=== PATIENT | male | born 1990 | race American Indian/Alaskan Native ===

== ENCOUNTER 2018-09-01 19:24 | Emergency (ER) | payer SELFPAY ==
--- NOTE | 2018-09-01 19:40 | ED PDOC ---
Arrival/HPI - General Historian: Patient - History of Present Illness Narrative History of Present Illness (Text): 09/01/18 20:05 Patient is a 28 year old male with past medical history of asthma presenting with chief complaint of abdominal pain, headache, and nausea which began when he woke up this morning. Pain is sharp and stabbing and located in upper abdominal area. He denies taking any medications. Denies any ingestion of atypical foods. Denies fevers, chills, chest pain, shortness of breath, vomiting, diarrhea, constipation, dysuria. Time/Duration: 24 hours Symptom Onset: Sudden Quality: Stabbing Severity Level: Moderate <Sonja Smith - Last Filed: 09/01/18 22:45> Past Medical History - Provider Review Nursing Documentation Reviewed: Yes <Sonja Smith - Last Filed: 09/01/18 22:45> Family/Social History - Physician Review Nursing Documentation Reviewed: Yes Family/Social History: No Known Family HX Smoking Status: Never Smoked Hx Alcohol Use: Yes Frequency of alcohol use: Socially Hx Substance Use: Yes (marijuana) <Sonja Smith - Last Filed: 09/01/18 22:45> Allergies/Home Meds <JeremyFred Hans - Last Filed: 09/01/18 20:52> <Sonja Smith - Last Filed: 09/01/18 22:45> Allergies/Adverse Reactions: Allergies rubbing alcohol Adverse Reaction (Uncoded 09/01/18 19:41) RASH Home Medications: Home Meds Medication Instructions Recorded Confirmed No Known Home Med 09/01/18 09/01/18 Review of Systems - Physician Review All systems were reviewed & negative as marked: Yes - Review of Systems Respiratory: Normal Cardiovascular: Normal Gastrointestinal: Abdominal Pain, Nausea. absent: Constipation, Diarrhea, Vomiting Genitourinary Male: Normal <Sonja Smith - Last Filed: 09/01/18 22:45> Physical Exam Vital Signs Reviewed: Yes Temperature: Afebrile Blood Pressure: Normal Pulse: Regular Respiratory Rate: Normal Appearance: Positive for: Non-Toxic Pain Distress: Mild Mental Status: Positive for: Alert and Oriented X 3 - Systems Exam Head: Present: Atraumatic, Normocephalic Pupils: Present: PERRL Extroacular Muscles: Present: EOMI Conjunctiva: Present: Normal Mouth: Present: Moist Mucous Membranes Respiratory/Chest: Present: Clear to Auscultation, Good Air Exchange. No: Respiratory Distress, Accessory Muscle Use Cardiovascular: Present: Regular Rate and Rhythm, Normal S1, S2. No: Murmurs Abdomen: Present: Tenderness (mild, epigastric), Normal Bowel Sounds. No: Distention, Rebound, Guarding Lower Extremity: Present: Normal Inspection. No: Edema Neurological: Present: GCS=15, CN II-XII Intact, Speech Normal Skin: Present: Warm, Dry, Normal Color Psychiatric: Present: Alert, Oriented x 3 <Sonja Smith L - Last Filed: 09/01/18 22:45> Medical Decision Making - Lab Interpretations Lab Results: Total Bilirubin 1.3 mg/dL (0.2-1.3) 09/01/18 20:35 AST 28 U/L (17-59) 09/01/18 20:35 ALT 9 U/L (7-56) 09/01/18 20:35 Alkaline Phosphatase 55 U/L (38-126) 09/01/18 20:35 Total Protein 8.3 g/dL (5.8-8.3) 09/01/18 20:35 Albumin 4.7 g/dL (3.0-4.8) 09/01/18 20:35 Globulin 3.7 gm/dL 09/01/18 20:35 Albumin/Globulin Ratio 1.3 (1.1-1.8) 09/01/18 20:35 Lipase 19 U/L (23-300) L 09/01/18 20:35 - RAD Interpretation Radiology Orders: 09/01/18 20:02 ABDOMEN COMPLETE [US] Stat - Medication Orders Current Medication Orders: Sodium Chloride (Sodium Chloride 0.9%) 1,000 mls @ 999 mls/hr IV .Q1H1M STA Stop: 09/01/18 21:03 Last Admin: 09/01/18 20:11 Dose: 999 mls/hr eMAR Start Stop Document 09/01/18 20:11 EQ (Rec: 09/01/18 20:12 EQ [id number]) Intravenous Solution Start Date 09/01/18 Start Time 20:12 Discontinued Medications Acetaminophen (Tylenol 325mg Tab) 975 mg PO STAT STA Stop: 09/01/18 20:03 Last Admin: 09/01/18 20:12 Dose: 975 mg Al Hydrox/Mg Hydrox/Simethicone (Maalox Plus 30 Ml) 30 ml PO STAT STA Stop: 09/01/18 20:05 Last Admin: 09/01/18 20:12 Dose: 30 ml Diphenhydramine HCl (Benadryl) 50 mg IVP STAT STA Stop: 09/01/18 20:16 Famotidine (Pepcid) 20 mg IVP STAT STA Stop: 09/01/18 20:04 Last Admin: 09/01/18 20:12 Dose: 20 mg IVP Administration Document 09/01/18 20:12 EQ (Rec: 09/01/18 20:12 EQ [id number]) Charges for Administration # of IVP Administrations 1 Metoclopramide HCl (Reglan) 10 mg IVP STAT STA Stop: 09/01/18 20:03 Last Admin: 09/01/18 20:12 Dose: 10 mg IVP Administration Document 09/01/18 20:12 EQ (Rec: 09/01/18 20:12 EQ [id number]) Charges for Administration # of IVP Administrations 1 <Fred Luna - Last Filed: 09/01/18 20:52> ED Course and Treatment: 09/01/18 19:45 Impression: 28 year old male with abdominal pain Plan: - CBC, CMP - Urinalysis - Abdomen ultrasound - IVF - Reglan - Pepcid - Maalox - Reassess and disposition Prior Visits: Notes and results from previous visits were reviewed. Progress Notes: 09/01/18 20:11 - RAD Interpretation Narrative RAD Interpretations (Text): 09/01/18 22:44 US: fatty liver, mild intrahepatic biliary ductal dilatation <Sonja Smith L - Last Filed: 09/01/18 22:45> - Scribe Statement The provider has reviewed the documentation as recorded by the Scribe Patient Seen with Provider In agreement with resident note which contains more details about the patient. Patient seen and evaluated with resident. Came up with plan and treatment together. <Fred Luna - Last Filed: 09/01/18 20:52> Disposition/Present on Arrival <Fred Luna - Last Filed: 09/01/18 20:52> - Present on Arrival Any Indicators Present on Arrival: No - Disposition Have Diagnosis and Disposition been Completed?: Yes Disposition Time: 22:33 <Sonja Smith - Last Filed: 09/01/18 22:45> - Disposition Diagnosis: Abdominal pain Disposition: HOME/ ROUTINE Patient Problems: Current Active Problems Problem Status Onset Abdominal pain Acute Condition: STABLE Discharge Instructions (ExitCare): Stomach Ache and Stomach Upset Additional Instructions: Follow up with your primary medical doctor within one week Return to ED if symptoms return or worsen Referrals: PCP,NO [Primary Care Provider] - Follow up with primary
[2018-09-01 19:41] VITALS: BMI 24.5
[2018-09-01] MEDS ORDERED: Sodium Chloride 0.9% 1,000 ML IV STA (20:03)
[2018-09-01] MEDS ORDERED: Alum-Mag Hydrox-Simethicone Susp (30 mL) PO STA (20:04)
[2018-09-01 20:39] LABS: BASO # 0.02 K/mm3 (0.0-2.0); BASO % 0.2 % (0.0-3.0); EOS % 0.1 % (1.5-5.0); LYMPH # 0.8 (1.2-3.4); LYMPH % 7.9 % (22.0-35.0); MEAN CELL VOLUME 88.5 fl (80.0-105.0); MEAN CORPUSCULAR HEMOGLOBIN 29.8 pg (25.0-35.0); MEAN CORPUSCULAR HGB CONC 33.7 g/dl (31.0-37.0); MEAN PLATELET VOLUME 10.1 fl (7.0-11.0); MONO # 0.8 (0.1-0.6); MONO % 8.3 % (1.0-6.0); RBC 5.03 10^6/uL (3.5-6.1); RED CELL DISTRIBUTION WIDTH 12.9 % (11.5-14.5); WHITE BLOOD COUNT 9.6 10^3/uL (4.5-11.0)
[2018-09-01 20:51] LABS: ALB/GLOB RATIO 1.3 (1.1-1.8); ALBUMIN 4.7 g/dL (3.0-4.8); ALT/SGPT 9 U/L (7-56); AST/SGOT 28 U/L (17-59); BLOOD UREA NITROGEN 12 mg/dL (7-21); CALCIUM 9.3 mg/dL (8.4-10.5); GFR NON-AFRICAN AMERICAN > 60; LIPASE 19 U/L (23-300)
[2018-09-01] MEDS: DiphenhydrAMINE 50 mg/ml Inj IVP STA ×2 (20:56→21:00)
[2018-09-01 22:31] VITALS: RESP 18; TEMP 97.5; O2SAT 100
[2018-09-01 22:37] LABS: URINE APPEARANCE CLEAR (CLEAR); URINE BILIRUBIN SMALL (NEGATIVE); URINE BLOOD MODERATE (NEGATIVE); URINE COLOR YELLOW (YELLOW); URINE GLUCOSE (UA) NEGATIVE (NEGATIVE); URINE LEUKOCYTE ESTERASE NEGATIVE Leu/uL (NEGATIVE); URINE PROTEIN TRACE mg/dL (<30 mg/dL)
[2018-09-01 22:42] VITALS: BP 105/64; PULSE 69
--- NOTE | 2018-09-02 11:52 | US ---
Date of service: 09/01/2018 HISTORY: abdominal pain COMPARISON: None. TECHNIQUE: Sonographic evaluation of the abdomen. FINDINGS: LIVER: Measures 13.2 cm. Diffusely increased echogenicity of the liver parenchyma. Consistent with fatty infiltration. Smooth contour. No mass. No biliary ductal dilatation. GALLBLADDER: Unremarkable. No gallstones. COMMON BILE DUCT: Measures 4 mm. No stones. No dilatation. PANCREAS: Unremarkable as visualized. No mass. No ductal dilatation. RIGHT KIDNEY: Measures 10.3cm. Normal echogenicity. No calculus, mass, or hydronephrosis. LEFT KIDNEY: Measures 10.4cm. Normal echogenicity. No calculus, mass, or hydronephrosis. SPLEEN: Normal in size and contour. No mass. AORTA: No aneurysmal dilatation. IVC: Unremarkable. OTHER FINDINGS: None. IMPRESSION: Fatty infiltration of the liver. Otherwise unremarkable examination. The preliminary findings for this examination were reported by [facility] at 9:16 p.m. on 09/01/2018. There is concurrence of this report with the preliminary findings.
== END 2018-09-01 22:41 | disposition home or self-care (01) ==
LOC: ED 19:24 → MERGE 19:24 → ED 22:41
DX: R10.9 Unspecified abdominal pain (principal)
CPT/HCPCS: 76700; 80053; 81001; 83690; 85025; 96374; 96375; 99285; J2765; J7030